=== PATIENT | female | born 1955 | race Caucasian/White ===

== ENCOUNTER → 2018-03-05 | Outpatient (CLI) | payer OTHER ==
[~2018-03-05] MED LIST: CELE100C PO
--- NOTE | 2018-03-05 12:54 | RAD ---
EXAM: Dual energy x-ray absorptiometry (DEXA). HISTORY: Postmenopausal female presents for osteoporosis screening. COMPARISON: 04/27/2015. TECHNIQUE: Dual energy x-ray absorptiometry of the lumbar spine and right hip was performed. Calculation of bone mineral density based on standard deviations above or below the expected young adult normal value (T-score) was completed. FINDINGS: The average bone mineral density in the 1st through 4th lumbar vertebrae is 1.161 g/cmxcm, corresponding with a T-score of 0.2. There has been a 0.1% decrease in density of the lumbar spine compared to the prior study. The average total bone mineral density in the right hip is 0.957 g/cmxcm, corresponding with a T-score of 0.0. There has been a 0.5% decrease in density of the right hip compared to the prior study. IMPRESSION: Normal bone mineral density. Note: Definitions established by the World Health Organization: 1. Normal: T-score is -1.0 or above. 2. Osteopenia: T-score is between -1.0 and -2.5 . 3. Osteoporosis: T-score is -2.5 or below. Electronically signed by: Samantha Delvalle MD (03/05/2018 12:51 PM) [facility]
--- NOTE | 2018-03-05 13:21 | RAD ---
DATE: 03/05/2018 EXAM: MAMMO ABDULLAHI SCREENING BILATERAL HISTORY: Routine screening COMPARISON: 04/27/2015 This study was interpreted with the benefit of Computerized Aided Detection (CAD). The breast parenchyma is heterogeneously dense, which could reduce sensitivity of mammography. Breast parenchyma level C. FINDINGS: 2-D and 3-D tomosynthesis imaging was performed in CC and MLO projections. No new or enlarging breast densities are seen. Minimal benign type calcifications are noted. IMPRESSION: Stable mammograms without evidence of malignancy. BI-RADS CATEGORY: 2 BENIGN FINDING(S) RECOMMENDED FOLLOW-UP: 12M 12 MONTH FOLLOW-UP PQRS compliance statement: Patient information was entered into a reminder system with a target due date for the next mammogram. Mammography is a sensitive method for finding small breast cancers, but it does not detect them all and is not a substitute for careful clinical examination. A negative mammogram does not negate a clinically suspicious finding and should not result in delay in biopsying a clinically suspicious abnormality. "Our facility is accredited by the [employer] Mammography Program."
== END | disposition home or self-care (01) ==
LOC: DXRAD 10:32
PROVIDERS: ATTEND Obstetrics & Gynecology
DX: Z12.31 Encounter for screening mammogram for malignant neoplasm of breast (principal); Z13.820 Encounter for screening for osteoporosis; Z79.890 Hormone replacement therapy
CPT/HCPCS: 77063; 77067; 77080

== ENCOUNTER 2018-11-19 17:05 | Emergency (ER) | payer OTHER ==
--- NOTE | 2018-11-19 18:02 | ED.ADGEN ---
Past History Past Medical History: Arthritis Past Surgical History: Tonsillectomy Smoking: Non-smoker Alcohol Use: Occasionally Drug Use: None Adult General Chief Complaint Chief Complaint ". I am having some many stools.. it seems worse in the morning.. now I just feel terrible.. HPI HPI Patient is a 63 year old female who presents with above hx and complaints abd. pain and persistent diarrhea x 5 days. Pt. had been recently of clindamycin for infection. Patient normally follows with [facility]. No history of travel. Is exposed ill patients. Patient has had previous colonoscopy approximately 10 years ago which showed diverticuli and a polyp. Has not had follow-up colonoscopy. Patient has had a hysterectomy.. Patient is on methotrexate for arthritis. Review of Systems Review of Systems Constitutional: Denies fever or chills [] Eyes: Denies change in visual acuity, redness, or eye pain [] HENT: Denies nasal congestion or sore throat [] Respiratory: Denies cough or shortness of breath [] Cardiovascular: No additional information not addressed in HPI [] GI: Complains of abdominal pain, nausea, and diarrhea [] : Denies dysuria or hematuria [] Musculoskeletal: Denies back pain or joint pain [] Integument: Denies rash or skin lesions [] Neurologic: Denies headache, focal weakness or sensory changes [] Endocrine: Denies polyuria or polydipsia [] All other systems were reviewed and found to be within normal limits, except as documented in this note. Family History Family History Noncontributory Current Medications Current Medications Current Medications Medications (Trade) Dose Ordered Sig/Lizeth Start Time Stop Time Status Last Admin Dose Admin Famotidine (Pepcid Vial) 20 mg STK-MED ONCE 11/19/18 18:14 11/19/18 18:15 DC Fentanyl Citrate (Fentanyl 2ml Vial) 100 mcg STK-MED ONCE 11/19/18 18:13 11/19/18 18:14 DC Ketorolac Tromethamine (Toradol 30mg Vial) 30 mg STK-MED ONCE 11/19/18 18:13 11/19/18 18:14 DC Lactated Ringer's 1,000 ml @ 1,000 mls/hr Q1H 11/19/18 18:06 11/19/18 19:05 DC 11/19/18 18:23 1,000 MLS/HR Metronidazole (Flagyl) 500 mg 1X ONCE 11/19/18 19:15 11/19/18 19:16 DC 11/19/18 19:28 500 MG Ondansetron HCl (Zofran) 8 mg 1X ONCE 11/19/18 18:15 11/19/18 18:16 DC 11/19/18 18:22 8 MG Potassium Chloride (KCl Oral Soln) 40 meq 1X ONCE 11/19/18 19:00 11/19/18 19:01 DC 11/19/18 19:24 40 MEQ Allergies Allergies Allergies Coded Allergies Type Severity Reaction Last Updated Verified Sulfa (Sulfonamide Antibiotics) Allergy Intermediate 11/19/18 Yes Physical Exam Physical Exam Constitutional: in moderately acute distress, non-toxic appearance. [] HENT: Normocephalic, atraumatic, bilateral external ears normal, oropharynx dry, no oral exudates, nose normal. [] Eyes: PERRLA, EOMI, conjunctiva normal, no discharge. [] Neck: Normal range of motion, no tenderness, supple, no stridor. [] Cardiovascular:Heart rate regular rhythm, no murmur [] Lungs & Thorax: Bilateral breath sounds clear to auscultation [] Abdomen: Bowel sounds hyperactive, soft, generalized tenderness, no masses, no pulsatile masses. Old surgery scar Skin: Warm, dry, no erythema, no rash. [] Back: No tenderness, no CVA tenderness. [] Extremities: No tenderness, no cyanosis, no clubbing, ROM intact, no edema. [] Neurologic: Alert and oriented X 3, normal motor function, normal sensory function, no focal deficits noted. [] Psychologic: Affect anxious, judgement normal, mood normal. [] Current Patient Data Vital Signs Vital Signs Date Time Temp Pulse Resp B/P (MAP) Pulse Ox O2 Delivery O2 Flow Rate FiO2 11/19/18 19:42 84 18 140/78 (98) 100 Room Air 11/19/18 18:25 2.0 11/19/18 17:21 98.9 Lab Results Laboratory Tests Test 11/19/18 17:22 White Blood Count 11.1 x10^3/uL (4.0-11.0) H Red Blood Count 4.35 x10^6/uL (3.50-5.40) Hemoglobin 14.6 g/dL (12.0-15.5) Hematocrit 42.9 % (36.0-47.0) Mean Corpuscular Volume 99 fL (79-100) Mean Corpuscular Hemoglobin 34 pg (25-35) Mean Corpuscular Hemoglobin Concent 34 g/dL (31-37) Red Cell Distribution Width 13.6 % (11.5-14.5) Platelet Count 261 x10^3/uL (140-400) Neutrophils (%) (Auto) 84 % (31-73) H Lymphocytes (%) (Auto) 7 % (24-48) L Monocytes (%) (Auto) 9 % (0-9) Eosinophils (%) (Auto) 1 % (0-3) Basophils (%) (Auto) 0 % (0-3) Neutrophils # (Auto) 9.3 x10^3uL (1.8-7.7) H Lymphocytes # (Auto) 0.8 x10^3/uL (1.0-4.8) L Monocytes # (Auto) 1.0 x10^3/uL (0.0-1.1) Eosinophils # (Auto) 0.1 x10^3/uL (0.0-0.7) Basophils # (Auto) 0.0 x10^3/uL (0.0-0.2) Sodium Level 140 mmol/L (136-145) Potassium Level 2.8 mmol/L (3.5-5.1) *L Chloride Level 101 mmol/L (98-107) Carbon Dioxide Level 26 mmol/L (21-32) Anion Gap 13 (6-14) Blood Urea Nitrogen 5 mg/dL (7-20) L Creatinine 1.0 mg/dL (0.6-1.0) Estimated GFR (Cockcroft-Gault) 56.2 Glucose Level 72 mg/dL (70-99) Calcium Level 9.5 mg/dL (8.5-10.1) Magnesium Level 1.6 mg/dL (1.8-2.4) L Total Bilirubin 0.6 mg/dL (0.2-1.0) Direct Bilirubin 0.1 mg/dL (0.0-0.2) Aspartate Amino Transferase (AST) 15 U/L (15-37) Alanine Aminotransferase (ALT) 19 U/L (14-59) Alkaline Phosphatase 63 U/L (46-116) Troponin I Quantitative < 0.017 ng/mL (0-0.055) XZ-Wmz-F-Type Natriuretic Peptide 613 pg/mL (0-124) H Total Protein 8.0 g/dL (6.4-8.2) Albumin 3.9 g/dL (3.4-5.0) Lipase 132 U/L (73-393) EKG EKG My interpretation of EKG shows a sinus rhythm at 80 bpm. There is some bimodal P-wave's. There is left axis deviation. Some nonspecific anterior lateral changes. No findings acute STEMI of contralateral changes.[] Radiology/Procedures Radiology/Procedures I interpretation of acute abdomen film shows no acute cardiopulmonary findings. No free air in the diaphragm. Findings of prior surgical clips.[] Course & Med Decision Making Course & Med Decision Making Pertinent Labs and Imaging studies reviewed. (See chart for details) Patient elects to go home. We will push fruit juices. Patient will be on a clear fluid diet only for the next 2 days. Patient take Flagyl 500 mg 3 times a day for suspected C. difficile infection. Patient follow-up cultures. Patient return if any concerns. Patient may take Vicoprofen up 4 times a day for discomfort. [] Final Impression Final Impression 1. Abdomen pain 2. Diarrhea[] 3. Suspect possibility of C-dif infection due to recent use of clindamycin 4. Arthritis- on methotrexate 5. Critical hypokalemia 2.6 6. Hypo-magnesium 1.6 7. Dehydration Dragon Disclaimer Dragon Disclaimer This electronic medical record was generated, in whole or in part, using a voice recognition dictation system. Discharge Summary Visit Information Final Diagnosis Problems Medical Problems: (1) Acute hypokalemia Status: Acute (2) Diarrhea Status: Acute (3) Hypokalemia, gastrointestinal losses Status: Acute Brief Hospital Course Allergies Allergies Coded Allergies Type Severity Reaction Last Updated Verified Sulfa (Sulfonamide Antibiotics) Allergy Intermediate 11/19/18 Yes Vital Signs Vital Signs Date Time Temp Pulse Resp B/P (MAP) Pulse Ox O2 Delivery O2 Flow Rate FiO2 11/19/18 19:42 84 18 140/78 (98) 100 Room Air 11/19/18 18:25 2.0 11/19/18 17:21 98.9 Lab Results Laboratory Tests Test 5/7/19 17:22 White Blood Count 11.1 x10^3/uL (4.0-11.0) Red Blood Count 4.35 x10^6/uL (3.50-5.40) Hemoglobin 14.6 g/dL (12.0-15.5) Hematocrit 42.9 % (36.0-47.0) Mean Corpuscular Volume 99 fL (79-100) Mean Corpuscular Hemoglobin 34 pg (25-35) Mean Corpuscular Hemoglobin Concent 34 g/dL (31-37) Red Cell Distribution Width 13.6 % (11.5-14.5) Platelet Count 261 x10^3/uL (140-400) Neutrophils (%) (Auto) 84 % (31-73) Lymphocytes (%) (Auto) 7 % (24-48) Monocytes (%) (Auto) 9 % (0-9) Eosinophils (%) (Auto) 1 % (0-3) Basophils (%) (Auto) 0 % (0-3) Neutrophils # (Auto) 9.3 x10^3uL (1.8-7.7) Lymphocytes # (Auto) 0.8 x10^3/uL (1.0-4.8) Monocytes # (Auto) 1.0 x10^3/uL (0.0-1.1) Eosinophils # (Auto) 0.1 x10^3/uL (0.0-0.7) Basophils # (Auto) 0.0 x10^3/uL (0.0-0.2) Sodium Level 140 mmol/L (136-145) Potassium Level 2.8 mmol/L (3.5-5.1) Chloride Level 101 mmol/L (98-107) Carbon Dioxide Level 26 mmol/L (21-32) Anion Gap 13 (6-14) Blood Urea Nitrogen 5 mg/dL (7-20) Creatinine 1.0 mg/dL (0.6-1.0) Estimated GFR (Cockcroft-Gault) 56.2 Glucose Level 72 mg/dL (70-99) Calcium Level 9.5 mg/dL (8.5-10.1) Magnesium Level 1.6 mg/dL (1.8-2.4) Total Bilirubin 0.6 mg/dL (0.2-1.0) Direct Bilirubin 0.1 mg/dL (0.0-0.2) Aspartate Amino Transf (AST/SGOT) 15 U/L (15-37) Alanine Aminotransferase (ALT/SGPT) 19 U/L (14-59) Alkaline Phosphatase 63 U/L (46-116) Troponin I Quantitative < 0.017 ng/mL (0-0.055) QY-Egn-I-Type Natriuretic Peptide 613 pg/mL (0-124) Total Protein 8.0 g/dL (6.4-8.2) Albumin 3.9 g/dL (3.4-5.0) Lipase 132 U/L (73-393) Brief Hospital Course Ms. Valentine is a 63 old female who presented with diarrhea x 5 days after course of Clindamycin. Dehydrated. Hypokalemic. Suspect possible C-dif infection. Discharge Information Condition at Discharge: Improved, Stable Disposition/Orders: D/C to Home Dischare Medications Current Medications Lactated Ringer's 1,000 ml @ 1,000 mls/hr Q1H IV Last administered on 11/19/18 18:23; Admin Dose 1,000 MLS/HR; Start 11/19/18 at 18:06; Stop 11/19/18 at 19:05; Status DC Ketorolac Tromethamine (Toradol 30mg Vial) 30 mg 1X ONCE IV Last administered on 11/19/18 18:22; Admin Dose 30 MG; Start 11/19/18 at 18:15; Stop 11/19/18 at 18:16; Status DC Fentanyl Citrate (Fentanyl 2ml Vial) 25 mcg 1X ONCE IV Last administered on 11/19/18 18:25; Admin Dose 25 MCG; Start 11/19/18 at 18:15; Stop 11/19/18 at 18:16; Status DC Ondansetron HCl (Zofran) 8 mg 1X ONCE IV Last administered on 11/19/18 18:22; Admin Dose 8 MG; Start 11/19/18 at 18:15; Stop 11/19/18 at 18:16; Status DC Famotidine (Pepcid Vial) 20 mg 1X ONCE IVP Last administered on 11/19/18 18:21; Admin Dose 20 MG; Start 11/19/18 at 18:15; Stop 11/19/18 at 18:16; Status DC Ketorolac Tromethamine (Toradol 30mg Vial) 30 mg STK-MED ONCE .ROUTE ; Start 11/19/18 at 18:13; Stop 11/19/18 at 18:14; Status DC Fentanyl Citrate (Fentanyl 2ml Vial) 100 mcg STK-MED ONCE .ROUTE ; Start 11/19/18 at 18:13; Stop 11/19/18 at 18:14; Status DC Famotidine (Pepcid Vial) 20 mg STK-MED ONCE .ROUTE ; Start 11/19/18 at 18:14; Stop 11/19/18 at 18:15; Status DC Potassium Chloride (KCl Oral Soln) 40 meq 1X ONCE PO Last administered on 11/19/18at 19:24; Admin Dose 40 MEQ; Start 11/19/18 at 19:00; Stop 11/19/18 at 19:01; Status DC Metronidazole (Flagyl) 500 mg 1X ONCE PO Last administered on 11/19/18at 19:28; Admin Dose 500 MG; Start 11/19/18 at 19:15; Stop 11/19/18 at 19:16; Status DC Active Scripts Active K-Tab ER (Potassium Chloride) 20 Meq Tablet.er 20 Meq PO DAILY 10 Days Metronidazole 500 Mg Tablet 500 Mg PO TID 10 Days Zofran (Ondansetron Hcl) 8 Mg Tablet 8 Mg PO QIDPRN PRN Hydrocodone-Ibuprofen 7.5-200 (Hydrocodone/Ibuprofen) 1 Each Tablet 1 Tab PO PRN Q6HRS PRN Reported Celebrex (Celecoxib) 100 Mg Capsule 100 Mg PO Brandy Disclaimer This chart was dictated in whole or in part using Voice Recognition software in a busy, high-work load, and often noisy Emergency Department environment. It may contain unintended and wholly unrecognized errors or omissions. LISA CORNELL MD November 19, 2018 18:02
[2018-11-19] MEDS ORDERED: IV RINGERS SOLUTION,LACTATED 1,000 ML IV SCH (18:06)
[2018-11-19] MEDS ORDERED: KETOROLAC 30 MG/ML VIAL. ONE (18:13)
[2018-11-19] MEDS ORDERED: FAMOTIDINE 20 MG/2 ML VIAL ONE (18:14)
[2018-11-19] MEDS ORDERED: KETOROLAC 30 MG/ML VIAL. IV ONE (18:15)
[2018-11-19] MEDS ORDERED: FAMOTIDINE 20 MG/2 ML VIAL IVP ONE (18:15)
[2018-11-19] MEDS ORDERED: ONDANSETRON PF 4 MG/2 ML VIAL. IV ONE (18:15)
[2018-11-19 18:26] LABS: BASO % 0 % (0-3); EOS # 0.1 x10^3/uL (0.0-0.7); EOS % 1 % (0-3); HEMATOCRIT 42.9 % (36.0-47.0); HEMOGLOBIN 14.6 g/dL (12.0-15.5); LYMPH # 0.8 x10^3/uL (1.0-4.8); LYMPH % 7 % (24-48); MEAN CORPUSCULAR HEMOGLOBIN 34 pg (25-35); MEAN CORPUSCULAR HGB CONC 34 g/dL (31-37); MEAN CORPUSCULAR VOLUME 99 fL (79-100); MONO % 9 % (0-9); NEUT # 9.3 x10^3uL (1.8-7.7); NEUT % 84 % (31-73); PLATELET COUNT 261 x10^3/uL (140-400); RED BLOOD COUNT 4.35 x10^6/uL (3.50-5.40); RED CELL DISTRIBUTION WIDTH 13.6 % (11.5-14.5); WHITE BLOOD COUNT 11.1 x10^3/uL (4.0-11.0)
[2018-11-19 18:42] LABS: ALBUMIN 3.9 g/dL (3.4-5.0); CALCIUM 9.5 mg/dL (8.5-10.1); DIRECT BILIRUBIN 0.1 mg/dL (0.0-0.2); GFR 56.2; MAGNESIUM 1.6 mg/dL (1.8-2.4); TOTAL BILIRUBIN 0.6 mg/dL (0.2-1.0)
--- NOTE | 2018-11-19 18:47 | RAD ---
EXAM: Abdomen acute complete. HISTORY: Diarrhea. Pain. COMPARISON: None. FINDINGS: A frontal view of the chest and frontal upright and supine views of the abdomen are obtained. There is no infiltrate, pleural effusion or pneumothorax. The heart is normal in size. There is a circumscribed nodule overlying the left lower lobe due to a nipple shadow. There is a small amount of gas and stool within the colon. There is no abnormally dilated loop of bowel. There is no free air. There is lumbar levoscoliosis. IMPRESSION: 1. No acute pulmonary finding. 2. Nonobstructive bowel gas pattern. Electronically signed by: Samantha Delvalle MD (11/19/2018 6:44 PM) [facility]
[2018-11-19 18:48] LABS: POTASSIUM 2.8 mmol/L (3.5-5.1)
[2018-11-19] MEDS ORDERED: POTASSIUM CHLORIDE 20 MEQ/15 ML ORAL LIQUID. PO ONE (19:00)
--- NOTE | 2018-11-19 19:08 | EKG ---
[address] [address] Test Date: 2018-11-19 Test Time: 18:51:09 Pat Name: DARLIN LIU Department: Room: Gender: F [employer]: : [id number] Requested By: LISA CORNELL Order Number: [id number] Reading MD: Juarez Engel MD Measurements Intervals Jonancy Rate: 88 P: 80 TN: 132 QRS: -59 QRSD: 72 T: 32 QT: 282 QTc: 344 Interpretive Statements SINUS RHYTHM NON-SPECIFIC ST/T CHANGES Electronically Signed On 12-16-2018 9:25:50 CDT by Juarez Engel MD
[2018-11-19] MEDS ORDERED: METR-34 PO (19:10)
[2018-11-19] MEDS ORDERED: ONDA8TAB9 PO (19:10)
[2018-11-19] MEDS ORDERED: POTA20TA84 PO (19:10)
[2018-11-19] MEDS ORDERED: HYDR-1179 PO (19:10)
[2018-11-19] MEDS ORDERED: metroNIDAZOLE 500 MG TABLET PO ONE (19:15)
[2018-11-19 19:42] VITALS: BP 140/78
[2018-11-24] MEDS ORDERED: CIPR500T94 PO (13:29)
== END 2018-11-19 20:04 | disposition home or self-care (01) ==
LOC: ER 17:05
DX: E87.6 Hypokalemia (principal); E86.0 Dehydration; R10.84 Generalized abdominal pain; E83.42 Hypomagnesemia; M19.90 Unspecified osteoarthritis, unspecified site; Z79.899 Other long term (current) drug therapy; Z88.2 Allergy status to sulfonamides
CPT/HCPCS: 36415; 74022; 80048; 80076; 83690; 83735; 83880; 84443; 84484; 85025; 93005; 96361; 96374; 96375; 99285; J1885; J2405; J3010; J3490; J7120

== ENCOUNTER 2018-11-22 06:52 | Emergency (ER) | payer OTHER ==
[~2018-11-22] VITALS: Ht 157.5 cm; Wt 51.7 kg
[~2018-11-22 06:52] MED LIST changes: +HYDR-1179 PO; +METR-34 PO; +ONDA8TAB9 PO; +POTA20TA84 PO
[2018-11-22 07:27] LABS: BASO # 0.1 x10^3/uL (0.0-0.2); BASO % 1 % (0-3); EOS # 0.1 x10^3/uL (0.0-0.7); EOS % 1 % (0-3); HEMATOCRIT 43.6 % (36.0-47.0); HEMOGLOBIN 14.8 g/dL (12.0-15.5); LYMPH % 12 % (24-48); MEAN CORPUSCULAR HEMOGLOBIN 34 pg (25-35); MEAN CORPUSCULAR HGB CONC 34 g/dL (31-37); MEAN CORPUSCULAR VOLUME 99 fL (79-100); MONO # 0.7 x10^3/uL (0.0-1.1); MONO % 9 % (0-9); NEUT # 6.3 x10^3uL (1.8-7.7); NEUT % 77 % (31-73); PLATELET COUNT 304 x10^3/uL (140-400); RED BLOOD COUNT 4.41 x10^6/uL (3.50-5.40); RED CELL DISTRIBUTION WIDTH 13.7 % (11.5-14.5); WHITE BLOOD COUNT 8.1 x10^3/uL (4.0-11.0)
[2018-11-22] MEDS ORDERED: ONDANSETRON PF 4 MG/2 ML VIAL. IV ONE (07:30)
[2018-11-22] MEDS ORDERED: IV NORMAL SALINE 1,000ML 1,000 ML IV ONE (07:30)
[2018-11-22 07:41] LABS: ALBUMIN 3.2 g/dL (3.4-5.0); ALBUMIN/GLOBULIN RATIO 0.9 (1.0-1.7); CALCIUM 8.8 mg/dL (8.5-10.1); CREATININE 0.8 mg/dL (0.6-1.0); GFR 72.7; POTASSIUM 3.3 mmol/L (3.5-5.1); TOTAL BILIRUBIN 0.3 mg/dL (0.2-1.0); TOTAL PROTEIN 6.9 g/dL (6.4-8.2)
[2018-11-22] MEDS ORDERED: ONDA4TAB12 PO (08:25)
--- NOTE | 2018-11-22 08:26 | PHYS DOC ---
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 The history goes that a couple of weeks ago she was on clindamycin for an abscess on her leg approximately a week later she started with diarrhea. She was seen by her primary care physician and started on some probiotics which she admits she is not taken. She came in a couple of days ago to the emergency department had low potassium, continued diarrhea and some nausea. She was started on replacement potassium which she state in but she says she's thrown up. She is also taken some by mouth Zofran which she states she also throws up. She does admit that she has not eaten anything solid in several days but she has been drinking water and juice. She denies any fever chills or sweats. She denies any melena or hematochezia. She states she feels very weak and run down.[] Review of Systems Review of Systems Constitutional: Generalized weakness but no fever or chills[] Eyes: Denies change in visual acuity, redness, or eye pain [] HENT: Denies nasal congestion or sore throat [] Respiratory: Denies cough or shortness of breath [] Cardiovascular: No additional information not addressed in HPI [] GI: Reports abdominal cramping, diarrhea, nausea and vomiting[] : Denies dysuria or hematuria [] Musculoskeletal: Denies back pain or joint pain [] Integument: Denies rash or skin lesions [] Neurologic: Denies headache, focal weakness or sensory changes [] Endocrine: Denies polyuria or polydipsia [] All other systems were reviewed and found to be within normal limits, except as documented in this note. Current Medications Current Medications Current Medications Medications (Trade) Dose Ordered Sig/Lizeth Start Time Stop Time Status Last Admin Dose Admin Ondansetron HCl (Zofran) 8 mg 1X ONCE 11/22/18 07:30 11/22/18 07:32 DC 11/22/18 07:23 8 MG Sodium Chloride 1,000 ml @ 1,000 mls/hr 1X ONCE 11/22/18 07:30 11/22/18 08:29 11/22/18 07:23 1,000 MLS/HR Allergies Allergies Allergies Coded Allergies Type Severity Reaction Last Updated Verified Sulfa (Sulfonamide Antibiotics) Allergy Intermediate 11/22/18 Yes Physical Exam Physical Exam Constitutional: Well developed, well nourished, appears ill but in no distress, non-toxic appearance. [] HENT: Normocephalic, atraumatic, bilateral external ears normal, oropharynx moist, no oral exudates, nose normal. [] Eyes: PERRLA, EOMI, conjunctiva normal, no discharge. [] Neck: Normal range of motion, no tenderness, supple, no stridor. [] Cardiovascular:Heart rate regular rhythm, no murmur [] Lungs & Thorax: Bilateral breath sounds clear to auscultation [] Abdomen: Bowel sounds normal, soft, no tenderness, no masses, no pulsatile masses. [] Skin: Warm, dry, no erythema, no rash. [] Back: No tenderness, no CVA tenderness. [] Extremities: No tenderness, no cyanosis, no clubbing, ROM intact, no edema. [] Neurologic: Alert and oriented X 3, normal motor function, normal sensory function, no focal deficits noted. [] Psychologic: Depressed affect. [] Current Patient Data Vital Signs Vital Signs Date Time Temp Pulse Resp B/P (MAP) Pulse Ox O2 Delivery O2 Flow Rate FiO2 11/22/18 07:05 97.5 93 18 100 Room Air Lab Results Laboratory Tests Test 11/22/18 07:15 White Blood Count 8.1 x10^3/uL (4.0-11.0) Red Blood Count 4.41 x10^6/uL (3.50-5.40) Hemoglobin 14.8 g/dL (12.0-15.5) Hematocrit 43.6 % (36.0-47.0) Mean Corpuscular Volume 99 fL (79-100) Mean Corpuscular Hemoglobin 34 pg (25-35) Mean Corpuscular Hemoglobin Concent 34 g/dL (31-37) Red Cell Distribution Width 13.7 % (11.5-14.5) Platelet Count 304 x10^3/uL (140-400) Neutrophils (%) (Auto) 77 % (31-73) H Lymphocytes (%) (Auto) 12 % (24-48) L Monocytes (%) (Auto) 9 % (0-9) Eosinophils (%) (Auto) 1 % (0-3) Basophils (%) (Auto) 1 % (0-3) Neutrophils # (Auto) 6.3 x10^3uL (1.8-7.7) Lymphocytes # (Auto) 1.0 x10^3/uL (1.0-4.8) Monocytes # (Auto) 0.7 x10^3/uL (0.0-1.1) Eosinophils # (Auto) 0.1 x10^3/uL (0.0-0.7) Basophils # (Auto) 0.1 x10^3/uL (0.0-0.2) Sodium Level 138 mmol/L (136-145) Potassium Level 3.3 mmol/L (3.5-5.1) L Chloride Level 101 mmol/L (98-107) Carbon Dioxide Level 20 mmol/L (21-32) L Anion Gap 17 (6-14) H Blood Urea Nitrogen 9 mg/dL (7-20) Creatinine 0.8 mg/dL (0.6-1.0) Estimated GFR (Cockcroft-Gault) 72.7 BUN/Creatinine Ratio 11 (6-20) Glucose Level 84 mg/dL (70-99) Calcium Level 8.8 mg/dL (8.5-10.1) Total Bilirubin 0.3 mg/dL (0.2-1.0) Aspartate Amino Transferase (AST) 14 U/L (15-37) L Alanine Aminotransferase (ALT) 15 U/L (14-59) Alkaline Phosphatase 50 U/L (46-116) Total Protein 6.9 g/dL (6.4-8.2) Albumin 3.2 g/dL (3.4-5.0) L Albumin/Globulin Ratio 0.9 (1.0-1.7) L Lipase 106 U/L (73-393) EKG EKG [] Radiology/Procedures Radiology/Procedures [] Course & Med Decision Making Course & Med Decision Making Pertinent Labs and Imaging studies reviewed. (See chart for details) [ED course: Evaluation reveals a 63-year-old female with gastroenteritis type symptoms. She's had this ongoing for several days. Today, her laboratory studies are improved from when she was in a couple of days ago. She was given some IV fluids as well as IV Zofran here and she says her symptoms have improved but she still feels worn out. I've encouraged her to take probiotics as directed by her primary care physician. I will give her some sublingual Zofran to take at home. I've informed her that she can stop with the potassium for now. Also, I think it's reasonable to continue Flagyl however I think Clostridium difficile is less likely because her white blood cell count is normal. We did check with Dr. Reveles and the results of the stool sample was not back yet] Brandy Disclaimer Dragon Disclaimer This electronic medical record was generated, in whole or in part, using a voice recognition dictation system. Departure Departure: Impression: Primary Impression: Vomiting and diarrhea Disposition: HOME, SELF-CARE Condition: IMPROVED Referrals: ISIDRA REVELES MD (PCP) Patient Instructions: Diarrhea, Diet for Diarrhea, Adult, Nausea and Vomiting Additional Instructions: It is very important for you to take the probiotic that was prescribed by Dr. Reveles. I think it is reasonable to continue the Flagyl as prescribed. There is no need to continue the potassium supplements. I have prescribed Zofran that dissolves under the tongue which should help the nausea little bit more than the pill. Return to the emergency department with any new or concerning symptoms Scripts Ondansetron (ONDANSETRON ODT) 4 Mg Tab.rapdis 1 TAB PO PRN Q6-8HRS for NAUSEA, #20 TAB Prov: SARA FALLON DO 11/22/18 SARA FALLON DO November 22, 2018 08:26
[2018-11-22 08:27] LABS: BACTERIA,URINE FEW /HPF (0-FEW); BILIRUBIN,URINE SMALL (NEG); CLARITY,URINE CLEAR; COLOR,URINE YELLOW; GLUCOSE,URINE NEG (NEG); NITRITE,URINE NEG (NEG); SQUAMOUS EPITHELIAL CELL,UR OCC /LPF; UROBILINOGEN,URINE 0.2 mg/dL (0.2 mg/dL); WBC,URINE RARE /HPF (0-4)
[2018-11-22 08:28] LABS: YEAST,URINE PRESENT /HPF
[2018-11-22 08:29] VITALS: BP 114/73
[2018-11-22] MEDS ORDERED: ESTR1TAB15 PO (11:32)
[2018-11-22] MEDS ORDERED: ACET325T9 PO (11:32)
[2018-11-24] MEDS ORDERED: CIPR500T94 PO (13:29)
== END 2018-11-22 08:37 | disposition home or self-care (01) ==
LOC: ER 06:52
DX: R19.7 Diarrhea, unspecified (principal); R11.2 Nausea with vomiting, unspecified; R10.9 Unspecified abdominal pain; M19.90 Unspecified osteoarthritis, unspecified site; Z90.710 Acquired absence of both cervix and uterus; Z88.2 Allergy status to sulfonamides
CPT/HCPCS: 36415; 80053; 81001; 83690; 85025; 96361; 96374; 99284; J2405; J7030

== ENCOUNTER 2018-11-22 10:48 | Inpatient (IN) | payer OTHER ==
[~2018-11-22] VITALS: Ht 157.5 cm; Wt 51.7 kg
[~2018-11-22 10:48] MED LIST changes: +ONDA4TAB12 PO
[2018-11-22 11:25] VITALS: BP 134/77
[2018-11-22] MEDS ORDERED: ACET325T9 PO (11:32)
[2018-11-22] MEDS ORDERED: ESTR1TAB15 PO (11:32)
[2018-11-22] MEDS ORDERED: ONDANSETRON PF 4 MG/2 ML VIAL. IV PRN (12:30)
[2018-11-22] MEDS: POTASSIUM CL 40MEQ D5-0.45NACL 1,000 ML IV SCH (12:53)
--- NOTE | 2018-11-22 13:03 | HP ---
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 She did complain of some chills and feeling dizzy, but denied any fever, denied any hematemesis, melena or hematochezia. She apparently was treated about 2 weeks ago with antibiotic in the form of clindamycin for an abscess in her left leg and she was also in [place] and has eaten some oysters and other seafood that something that she normally never do. Nobody in her family has the same symptoms. She was started on methotrexate 10 mg once a week around May last year and since then she has for what seemed to be psoriatic arthritis by her hammer fitter at [facility]; however, she quit taking it on her own. She has experienced multiple complications that she attributes to immunosuppressive effect to the methotrexate. She lives within the [address] [facility] [place] and uses city water. PAST MEDICAL HISTORY: Significant for osteoarthritis versus psoriatic arthritis. PAST SURGICAL HISTORY: Significant for total abdominal hysterectomy and bilateral salpingo-oophorectomy. She has also tonsillectomy and adenoidectomy. ALLERGIES: She is allergic to SULFA DRUGS. MEDICATIONS: She is currently on Flagyl 500 mg 3 times a day for presumed C. diff colitis. She is also on potassium supplement 20 mEq daily, Zofran 8 mg 4 times a day. She is on estradiol 1 mg daily and hydrocodone/ibuprofen 7.5/200 every 6 hours p.r.n. FAMILY HISTORY: She has one brother and sister older and both have hypertension, hyperlipidemia. Her younger sister is healthy. Her father at age of 67 because of myocardial infarction. Her mother at the age of 86, the cause of her is not clear to her. SOCIAL HISTORY: She is . She has 2 daughters and 1 son. She has never smoked, does not drink alcohol or use recreational drugs. She obviously works as a registered at [employer]. REVIEW OF SYSTEMS: The patient denied any blurring of vision, cataract, glaucoma or macular degeneration. Denied any earache, tinnitus or sensorineural deafness. Denied any nosebleeds, stuffy nose or postnasal drip. Denied any sore throat, sore tongue, toothache, hoarseness of voice or difficulty swallowing. Did complain of nausea and vomiting. Denied any hematemesis, has had multiple episodes of diarrhea, but there is no melena or hematochezia. Denied any dysuria, frequency or hematuria. Denied any chest pain, cough, phlegm or hemoptysis. Denied any chills, rigors, or fever. Denied any dyspnea, orthopnea or paroxysmal nocturnal dyspnea. Denied any cough. She did complain of some dizziness. PHYSICAL EXAMINATION: GENERAL: When I examined her, she was resting, slightly propped up in bed, in no apparent respiratory distress. She was pale, but no jaundice, cyanosis, or thyromegaly. No jugular venous distension. No lower limb edema. VITAL SIGNS: Her heart rate was 82, blood pressure was 134/77, temperature was 97.6, respiratory rate was 18 and oxygen saturation was 99%. HEAD, EYES, EARS, NOSE, AND THROAT: Showed she is normocephalic, atraumatic. NECK: Supple. HEART: Showed normal first and second heart sounds. No gallop, rub or murmur. CHEST: Clear to auscultation. No crepitation or rhonchi. ABDOMEN: Slightly distended, soft with diffuse tenderness mostly in the left and right lower quadrant and there is no guarding or rigidity. No organomegaly. All hernial orifice intact. Bowel sounds normal. NEUROLOGIC: She is awake, alert, responding appropriately. All her cranial nerves are intact. EXTREMITIES: She moves her extremities without difficulty. She ambulates without assistance or assistive devices. LABORATORY DATA: Her lab work this morning showed a white cell count 8100, hemoglobin 14.8, hematocrit 43.6, MCV 99 and platelet count of 304,000 with normal manual differential with 77% polymorphs, 12% lymphocytes and 9% monocytes. Her urinalysis was essentially unremarkable. The urine was yellow, clear with a pH of 5.5, specific gravity of 1.025. There was large amount of ketones. The urine was negative for glucose, small amount of bilirubin, moderate amount of blood, negative for nitrites and leukocyte esterase, and 1-2 rbc's, rare wbc's, and few bacteria. The yeast is present. Her white cell count was 138 mEq/L, potassium was 3.3, chloride 101, bicarbonate 20, anion gap of 17. Her glucose was 84, calcium was 8.8. Total protein was 6.9, albumin 3.2. Her BUN was 9, creatinine 0.8. Total bilirubin, AST, ALT, alkaline phosphatase were all normal. Her lipase was 106 and estimated GFR was 72 mL per minute. ASSESSMENT AND PLAN: In summary, this is a 63-year-old female patient, who came with recurrent bouts of diarrhea and abdominal discomfort. This started about a week ago. There are many possible potential cause of this including obviously C. diff colitis induced particularly by clindamycin. She has eaten some oysters and seafoods while in [place] that also obviously has the possibility of some food poisoning. She has been on methotrexate and this obviously lowered her immunity. PLAN: My plan is to send stool for culture and sensitivity and again stool for C. diff. I will arrange for her to have also CT scan of the abdomen and pelvis with oral and IV contrast and we will start her on IV fluid to replenish her potassium in the form of D5 half normal with 40 mEq of potassium chloride. I will continue with Flagyl. We will start her on a clear liquid diet as tolerated. JESSIE CORRALES MD DR: FILIBERTO/ann JOB#: [id number] / [id number]
[2018-11-22] MEDS ORDERED: IOHEXOL 300 MG/ML 75 ML VIAL. IV ONE (13:15)
[2018-11-22 14:45] VITALS: BP 120/78
--- NOTE | 2018-11-22 14:59 | RAD ---
CT ABD PELV W/ IV CONTRST ONLY Indication: Recurrent bouts of diarrhea and abdominal pain. Exposure: One or more of the following individualized dose reduction techniques were utilized for this examination: 1. Automated exposure control 2. Adjustment of the mA and/or kV according to patient size 3. Use of iterative reconstruction technique. Technique: Intravenous contrast was given. No oral contrast per request. Lung bases are clear. Hypodense lesion in the left liver anteriorly measures 13 mm, and 10 Hounsfield units, compatible with a cyst. Several smaller lesions in the right lobe are too small to characterize. Spleen is unremarkable. Pancreas demonstrates no peripancreatic fluid or inflammatory type change. No adrenal mass. Kidneys demonstrate symmetric enhancement. There is a low-density lesion of the lower pole of the left kidney measuring 2.8 cm and 17 Hounsfield units, most compatible with a cyst. There is another smaller lesion just above this, difficult to characterize but also probably a cyst. No hydronephrosis. No calcified gallstone. The aorta is nonaneurysmal. No significant lymph node enlargement. Mild wall thickening of the colon and rectum diffusely, although lack of distention could contribute to this appearance. There is also a question of mild paracolonic stranding. No evidence of small bowel obstruction. Visualization of the appendix is suggested on the coronal images, but not clearly defined. No evidence of pneumoperitoneum. There is mild free pelvic fluid. No significant urinary bladder wall thickening. No evidence of a pelvic mass. Degenerative changes of the spine, particularly at L4-L5 where there is 7 mm anterolisthesis and stenosis. No aggressive bone destruction. Impression: 1. Mild colorectal wall thickening, with suggestion of pericolonic stranding, suspicious for mild colitis. 2. Mild free pelvic fluid of uncertain etiology. 3. Hepatic and renal lesions are most likely benign. 4. Degenerative changes of the spine with spondylolisthesis stenosis, particularly at L4-L5. Electronically signed by: Canelo Caraballo MD (11/22/2018 2:57 PM) [id number]
[2018-11-22 19:25] VITALS: BP 118/75
[2018-11-22] MEDS: ESTRADIOL 1 MG TABLET PO SCH (20:55)
[2018-11-22] MEDS: ACETAMINOPHEN 325 MG TABLET PO PRN (20:55)
[2018-11-22] MEDS: diphenhydrAMINE HCL 25 MG CAPSULE PO PRN (20:55)
[2018-11-22 22:04] VITALS: BP 135/76
[2018-11-23] MEDS: POTASSIUM CL 40MEQ D5-0.45NACL 1,000 ML IV SCH ×3 (03:32→17:18)
[2018-11-23 06:16] VITALS: BP 128/79
[2018-11-23 07:01] LABS: BASO % 1 % (0-3); EOS # 0.1 x10^3/uL (0.0-0.7); EOS % 3 % (0-3); HEMATOCRIT 35.7 % (36.0-47.0); HEMOGLOBIN 12.2 g/dL (12.0-15.5); LYMPH # 1.1 x10^3/uL (1.0-4.8); LYMPH % 23 % (24-48); MEAN CORPUSCULAR HEMOGLOBIN 34 pg (25-35); MEAN CORPUSCULAR HGB CONC 34 g/dL (31-37); MEAN CORPUSCULAR VOLUME 98 fL (79-100); MONO # 0.6 x10^3/uL (0.0-1.1); MONO % 12 % (0-9); NEUT # 2.9 x10^3uL (1.8-7.7); NEUT % 61 % (31-73); PLATELET COUNT 279 x10^3/uL (140-400); RED BLOOD COUNT 3.65 x10^6/uL (3.50-5.40); RED CELL DISTRIBUTION WIDTH 13.4 % (11.5-14.5); WHITE BLOOD COUNT 4.8 x10^3/uL (4.0-11.0)
[2018-11-23 07:14] LABS: ALBUMIN 2.6 g/dL (3.4-5.0); ALBUMIN/GLOBULIN RATIO 0.8 (1.0-1.7); CALCIUM 8.4 mg/dL (8.5-10.1); CREATININE 0.8 mg/dL (0.6-1.0); GFR 72.7; POTASSIUM 3.2 mmol/L (3.5-5.1); TOTAL BILIRUBIN 0.3 mg/dL (0.2-1.0); TOTAL PROTEIN 5.7 g/dL (6.4-8.2)
[2018-11-23] MEDS: LACTOBACILLUS RHAMNOSUS GG 1 CAPSULE. PO SCH ×2 (12:14→20:43)
[2018-11-23 12:24] VITALS: BP 131/77
[2018-11-23] MEDS: POTASSIUM CHLORIDE 20 MEQ TABLET.ER. PO SCH ×2 (13:19→20:44)
[2018-11-23 13:35] LABS: FECAL OB PT POSITIVE (NEG)
[2018-11-23 15:31] VITALS: BP 157/80
[2018-11-23] MEDS ORDERED: PANTOPRAZOLE IV 40 MG VIAL. IVP ONE (16:45)
[2018-11-23 19:50] VITALS: BP 125/78
[2018-11-23] MEDS: diphenhydrAMINE HCL 25 MG CAPSULE PO PRN (20:43)
[2018-11-23] MEDS: CIPROFLOXACIN 400MG PREMIX 200 ML IV SCH (20:43)
[2018-11-23] MEDS: ACETAMINOPHEN 325 MG TABLET PO PRN (20:43)
[2018-11-23] MEDS: ESTRADIOL 1 MG TABLET PO SCH (20:43)
--- NOTE | 2018-11-24 02:22 | PN ---
DATE: 11/23/2018 SUBJECTIVE: The patient is resting slightly propped up in bed, in no apparent distress, awake, alert. On questioning her, she has had no further episodes of nausea, vomiting; however, she continued to have diarrhea. Denied any abdominal pain. Her lab work showed that she continued to have hypokalemia with potassium of only 3.2. Her CT scan of the abdomen and pelvis showed that she has mild colorectal wall thickening with suggestion of pericolonic stranding suspicious for mild colitis. She has mild free pelvic fluid of uncertain etiology. Hepatic and renal lesions are most likely benign. She has degenerative changes of the spine with spondylolisthesis and stenosis, particularly at L4-L5. PHYSICAL EXAMINATION: GENERAL: When I examined her this morning, she looked well and was clearly in no apparent respiratory distress. No pallor, jaundice, cyanosis, or thyromegaly. No jugular venous distention. No limb edema. VITAL SIGNS: Her heart rate was 77, blood pressure was 131/77, temperature was 97.9, respiratory rate was 18, and oxygen saturation was 98% on room air. HEAD, EYES, EARS, NOSE AND THROAT: Showed normocephalic, atraumatic. NECK: Supple. HEART: Showed normal first and second heart sounds. No gallop, rub or murmur. CHEST: Clear to auscultation. No crepitation or rhonchi. ABDOMEN: Distended, soft, nontender. NEUROLOGIC: She is awake, alert, responding appropriately. All cranial nerves intact. She moves extremities without difficulty. She ambulates without assistance or assistive devices. Her intake over the last 24 hours was 2265, output was 1650. LABORATORY DATA: Her lab work showed white cell count of 4800, hemoglobin 12, hematocrit 36, MCV 98 and platelet count 279,000. Her chemistry showed a serum sodium 141, potassium 3.2, chloride 107, bicarbonate 26, anion gap of 8, BUN 4, creatinine 0.8, estimated GFR was 73 mL per minute. Her glucose was 102, calcium was 8.4. Total bilirubin, AST, ALT, alkaline phosphatase were normal. Total protein was 5.7, albumin 2.6. Her stool for C. diff toxins was negative. Stool for culture is still pending. ASSESSMENT: 1. Acute colitis. 2. Hypokalemia. PLAN: My plan is to replenish her potassium, add ciprofloxacin, continued IV fluid. We will monitor her lab work closely and decide on further management accordingly. JESSIE CORRALES MD DR: FILIBERTO/ann JOB#: [id number] / [id number]
[2018-11-24] MEDS: POTASSIUM CL 40MEQ D5-0.45NACL 1,000 ML IV SCH (04:30)
[2018-11-24] MEDS: ACETAMINOPHEN 325 MG TABLET PO PRN (05:57)
[2018-11-24 06:04] VITALS: BP 136/79
[2018-11-24 07:25] LABS: CALCIUM 8.3 mg/dL (8.5-10.1); CREATININE 0.7 mg/dL (0.6-1.0); GFR 84.8; POTASSIUM 3.7 mmol/L (3.5-5.1)
[2018-11-24] MEDS ORDERED: PANTOPRAZOLE IV 40 MG VIAL. IVP SCH (07:30)
[2018-11-24] MEDS: LACTOBACILLUS RHAMNOSUS GG 1 CAPSULE. PO SCH (07:46)
[2018-11-24] MEDS: POTASSIUM CHLORIDE 20 MEQ TABLET.ER. PO SCH (07:46)
[2018-11-24] MEDS: CIPROFLOXACIN 400MG PREMIX 200 ML IV SCH (07:46)
[2018-11-24 11:25] VITALS: BP 128/81
[2018-11-24] MEDS ORDERED: CIPR500T94 PO (13:29)
--- NOTE | 2018-11-24 18:33 | DS ---
DATE OF DISCHARGE: 11/24/2018 HOSPITAL COURSE: The patient is a 63-year-old female patient who was admitted with recurrent bouts of nausea and vomiting as well as abdominal discomfort and diarrhea that has been going on for almost 7 days. She received treatment with clindamycin about 2 weeks prior to onset of her symptoms and she has eaten some oysters and other seafoods while visiting her family in [place]. She was also on methotrexate 10 mg once a week for what seemed to be psoriatic arthritis; although, the patient has taken herself off the medication. We did start her on IV fluid and continued IV Flagyl. Her CT scan of the abdomen show that she has mild colorectal wall thickening with suggestion of pericolonic stranding suspicious for mild colitis. She has mild free pelvic fluid of uncertain etiology, hepatic and renal lesion are most likely benign. She has degenerative change of the spine with spondylolisthesis, stenosis, particularly at L4-L5. We added ciprofloxacin after sending stool for culture and sensitivity as well as C. diff toxins. Her C. diff toxins were negative. Her stool for culture was negative for Campylobacter jejuni; however, microbiological testing to rule out the presence of possible pathogen is still in progress as the patient's condition has improved. She has no further episodes of nausea and vomiting. She has only one bowel movement this morning and her lab work showed that she has been well hydrated. Her potassium has improved, a decision was made to discharge her home to continue on oral Flagyl and ciprofloxacin for 7 more days. PHYSICAL EXAMINATION: GENERAL: When I examined her this afternoon, she looked well and was clearly in no apparent respiratory distress, pale. No jaundice or cyanosis. No lymphadenopathy. No thyromegaly. No jugular venous distention. No limb edema. VITAL SIGNS: Her heart rate was 72, blood pressure 128/81, temperature was 98.1, respiratory rate was 20, and oxygen saturation was 99% on room air. HEAD, EYES, EARS, NOSE, AND THROAT: Normocephalic, atraumatic. NECK: Supple. HEART: Showed normal first and second heart sounds. No gallop, rub, or murmur. CHEST: Clear to auscultation. No crepitation or rhonchi. ABDOMEN: Slightly distended, soft, mild tenderness in the left lower quadrant. There is no guarding or rigidity. No organomegaly. All hernial orifices are intact. Bowel sounds normal. NEUROLOGIC: She is awake, alert, responding appropriately. All her cranial nerves are intact. She moves extremities without difficulty. She ambulates without assistance or assistive devices. Her intake over the last 24 hours was 3400, no output was recorded. LABORATORY DATA: As of this morning, her serum sodium was 139, potassium 3.7, chloride 106, bicarbonate 27, anion gap of 6, BUN 1, creatinine 0.7, estimated GFR was 85 mL per minute. Her glucose was 101, calcium was 8.3. Her white cell count was 4800, hemoglobin 12, hematocrit 36, MCV 98, and platelet count 279,000. DISCHARGE MEDICATIONS: She was discharged home to continue on Tylenol 650 mg every 4-6 hours, estradiol 1 mg at bedtime, Flagyl 500 mg 3 times a day, ondansetron or Zofran 4 mg every 6-8 hours, potassium chloride 20 mEq once a day as well as ciprofloxacin 500 mg twice a day for 7 days, and hydrocodone/APAP 5/325 one tablet every 4 hours as needed. FINAL DISCHARGE DIAGNOSES: 1. Acute gastroenteritis. 2. Hypokalemia. 3. Dehydration. JESSIE CORRALES MD DR: FILIBERTO/ann JOB#: [id number] / [id number]
== END 2018-11-24 14:01 | disposition home or self-care (01) | DRG 392 ==
LOC: 1 SOUTH 11:15
PROVIDERS: ADMIT Internal Medicine; ATTEND Internal Medicine
DX: K52.9 Noninfective gastroenteritis and colitis, unspecified (principal); E87.6 Hypokalemia; E86.0 Dehydration; M48.061 Spinal stenosis, lumbar region without neurogenic claudication; M43.16 Spondylolisthesis, lumbar region; L40.50 Arthropathic psoriasis, unspecified; Z90.710 Acquired absence of both cervix and uterus; Z88.2 Allergy status to sulfonamides; Z82.49 Family history of ischemic heart disease and other diseases of the circulatory system
CPT/HCPCS: 36415; 74177; 80048; 80053; 82274; 85025; 87045; 87493; C9113; J0744; J2405; J3010; J3490; J7042; Q0163; Q9967